=== PATIENT | male | born 1960 | race Caucasian/White ===

== ENCOUNTER 2017-07-29 15:30 | Inpatient (IN) ==
[2017-07-29] MEDS ORDERED: Naloxone 0.4 MG/ML INJ IVP PRN (20:19)
--- NOTE | 2017-07-29 20:35 | Internal Med History&Physical ---
Date of Encounter: 07/29/17 Time of Encounter: 19:40 Internal Medicine - H&P: HPI Chief complaint: melena; SOB; lightheaded Admitted From: Hospital to Hospital Transfer Plans for Post Hospital Care: Home History of present illness: Mr. Boyer is a 57 year old male who presents in transfer from [facility] ER. He presented there with melena, maroon-colored stools, and shortness breath with lightheadedness. He was found to be anemic with a hemoglobin of 7.6. Because of his symptoms and GI bleed, he was transferred to [facility]. Upon my assessment of the patient, he appears pale and weak. His is present and confirms the above history. Patient started having melena followed by wound-colored stools on occasion over the last week. Most of his bowel movements have been melena, however. Since symptoms started, he has become short of breath with exertion, lightheaded, and dizzy with exertion. He denies any chest pain or syncope. He denies any hematemesis, nausea, or vomiting. He denies any abdominal pain. He and his both confirm that he has been using [id number]-[id number] Aleve for years to treat his chronic back pain. He denies any alcohol use or abuse. Prior to last week, he was feeling fine and had no symptoms as noted above. He has never had EGD or colonoscopy. History is negative for any kind of peptic ulcer disease and/or colon disease. Presently, his blood pressure is 97/63 and his heart rate is in the upper 90s. He is pale and weak but otherwise in no significant distress. His reports that his blood pressure home normally runs 140-150 systolic. Given that he is hypotensive and symptomatic, I am moving him to the intensive care unit for fluid and blood product resuscitation and stabilization. I contacted Dr. Garnica and requested consultation from him for planned EGD in the morning. Should he become unstable, I will contact him to proceed with urgent EGD this evening. Dr. Garnica agreed with my plan of care. Past Med Surg Social Fam HX - Past Medical History Attestation: Yes The following information was validated with the patient. Source: patient, old records reviewed, obtained from family Medical history: no medical history Psychiatric history: no psych history - Past Surgical History Surgical History: no surgical history - Social History Smoking Status: Current every day smoker Packs per day: 1 Smokeless Tobacco Status: No Alcohol use: none Drug use: none Occupational status: employed Current living situation: Home, With Family Activity Level: Independent ambulation Recent Out of Country Travel Within the Last 8 Weeks: No - Family History Father Living Status: Still Living Hx Family Cancer: Yes Hx Family GI Disorders: No Mother Living Status: Still Living Hx Family GI Disorders: No Internal Medicine - H&P: Meds Aspirin [Adult Aspirin Regimen] 81 mg PO DAILY 07/29/17 [History] 3 Allergy/AdvReac Type Severity Reaction Status Date / Time No Known Allergies Allergy Verified 07/24/17 11:52 - Constitutional Constitutional: fatigue, weakness, no chills, no fever(s), no night sweats - EENT Eyes: no blurry vision, no change in vision Ears: no ear pain, no tinnitus Nose, mouth and throat: no nasal congestion, no nasal discharge, no sinus pressure, no sore throat - Cardiovascular Cardiovascular ROS IM: dyspnea on exertion, lightheadedness, no chest pain, no dyspnea, no palpitations, no paroxysmal nocturnal dyspnea, no syncope - Respiratory Respiratory: no cough, no hemoptysis, no wheezing, no chest congestion, no excessive phlegm production, no change in phlegm color - Gastrointestinal Gastrointestinal: heartburn, melena, no abdominal pain, no coffee ground emesis , no hematemesis, no hematochezia, no nausea, no vomiting - Genitourinary Genitourinary ROS male: no dysuria, no flank pain, no hematuria - Musculoskeletal Musculoskeletal ROS IM: arthralgias, back pain - Integumentary Integumentary IM: no rash, no jaundice - Neurological Neurological ROS: dizziness, weakness, no focal weakness, no frequent falls, no headache(s) - Psychiatric Psychiatric: no anxiety, no depression - Endocrine Endocrine IM: no polydipsia, no polyuria - Allergic/Immunologic Allergic/Immunologic: no wheezing, no GI upset with certain foods - Constitutional Vitals: BP Pulse Ox 97/63 98 07/29/17 20:09 07/29/17 20:09 General appearance: Present: cooperative, A&O X 3, pleasant, no acute distress, answers questions appropriately Exam: pale and weak; resting comfortably in bed - Head Head exam: Present: normal inspection - Eye Eye exam: Present: EOMI. Absent: PERRL, scleral icterus Pupils: Present: normal accommodation Additional comments: right eye blind/lazy eye -- from - ENT ENT exam: Present: mucous membranes dry, normal exam, normal oropharynx Additional comments: pale mucosa - Neck Neck exam general surgery: Present: full ROM, supple. Absent: tenderness, nuchal rigidity, thyromegaly - Respiratory Respiratory exam: Present: CTAB. Absent: rales, rhonchi, wheezes - Cardiovascular Cardiovascular exam: Present: RRR, +S1, +S2. Absent: diastolic murmur, systolic murmur Additional comments: HR 90-96 on auscultation - GI/Abdominal GI/Abdominal exam: Present: normal bowel sounds, soft. Absent: guarding, hepatomegaly, mass, rebound, splenomegaly, tenderness - Extremities Exam Extremities exam: Present: full ROM, warm, radial pulses palpable and symmetrical. Absent: calf tenderness, joint swelling, normal capillary refill ( ~3-4 seconds), pedal edema, tenderness - Back Exam Back exam: Absent: CVA tenderness (L), CVA tenderness (R) - Neurological Exam Neurological exam: Present: alert, CN II-XII intact, oriented X3, no focal deficits, strengths equal and symetr throughout - Psychiatric Psychiatric exam: Present: normal affect, normal mood - Skin Skin exam: Present: dry, warm. Absent: rash Internal Med - H&P Results - Labs Labs: I reviewed labs from [place] and include the following: WBC 14.4 Hemoglobin 7.6 (baseline 17.3) Hematocrit 22.5 Platelets 349 Segmented neutrophils 61% Lymphocytes 26% Monocytes 6% PT 11.6 INR 1.1 PTT 28.8 Sodium 138 Potassium 3.8 Chloride 106 Carbon dioxide 25 BUN 11 Creatinine 0.85 - Assessment and plan (1) GI bleed Current Visit: Yes Status: Acute Assessment and plan: 1. Patient with suspected UGI bleed given symptoms and chronic NSAID use. 2. Due to hemdoynamic instability, will move to ICU, place a second IV, transfuse 2 units PRBC, monitor H/H frequently. 3. I called and spoke with Dr. Garnica requesting consultation for EGD. Plan for EGD in the morning, sooner if necessary. 4. Protonix drip. 5. Culture blood and start IV antibiotics to cover GI josep. Qualifiers: GI bleed type/associated pathology: melena Qualified Code(s): K92.1 - Melena (2) Symptomatic anemia Current Visit: Yes Status: Acute Assessment and plan: 1. Will transfuse PRBC's and monitor H/H closely. 2. Source of bleed likely UGI. (3) DVT prophylaxis Current Visit: Yes Status: Acute Assessment and plan: 1. EPCD's.
[2017-07-29] MEDS: Pantoprazole 40 MG in 0.9 % Sodium Chloride Mini Bag 100 ML IVC SCH (21:34)
[2017-07-29] MEDS: 0.9 % Sodium Chloride w KCl 20 MEQ/1,000 ML MLS IVC SCH (21:34)
[2017-07-29] MEDS ORDERED: 0.9 % Sodium Chloride 250 ML ONE (22:40)
[2017-07-29] MEDS: Piperacillin/Tazobactam 3.375 GM in 0.9 % Sodium Chloride Mini Bag 100 ML IVPB SCH (23:09)
[2017-07-29] MEDS: MetroNIDAZOLE 500 MG/100 ML 500 MG/100 ML BAG IVPB SCH (23:10)
[2017-07-30] MEDS: Pantoprazole 40 MG in 0.9 % Sodium Chloride Mini Bag 100 ML IVC SCH ×5 (02:13→19:03)
[2017-07-30 03:09] LABS: BUN/Creatinine Ratio 12 (6-26); Blood Urea Nitrogen 9 mg/dL (6-20); Calcium 8.2 mg/dL (8.6-10.3); Carbon Dioxide 22 mEq/L (23-29); Chloride 112 mEq/L (98-107); Glucose 92 mg/dL (70-105); Osmolality,Calculated 288 (280-300); Sodium 140 mEq/L (136-145); eGFR For African Americans > 60 (> 60); eGFR For Non-African Americans > 60 (> 60)
[2017-07-30 03:14] LABS: Basophils # 0.1 K/mcL (0.0-0.2); Basophils % 0.4 %; Eosinophils # 0.5 K/mcL (0.0-0.6); Eosinophils % 3.3 %; Hematocrit 22.4 % (37.5-50.1); Hemoglobin 7.7 g/dL (12.9-16.9); Immature Granulocytes % 1.2 % (0-4); Lymphocytes # 3.1 K/mcL (0.6-4.6); Lymphocytes % 23.1 %; Mean Corpuscular HGB Conc 34.4 g/dL (31.6-35.5); Mean Corpuscular Hemoglobin 32.5 pg (28.0-33.3); Mean Corpuscular Volume 94.5 fL (83.0-100.0); Mean Platelet Volume 9.3 fL (9.4-12.4); Monocytes # 0.9 K/mcL (0.0-1.3); Monocytes % 6.9 %; Neutrophils # 8.9 K/mcL (1.6-8.9); Nucleated Red Blood Cells 0.1 /100 WBC (0); Platelet Count 306 K/mcL (140-400); Red Blood Count 2.37 M/mcL (4.19-5.50); Red Cell Distribution Width 15.9 % (11.5-14.5); Segmented Neutrophils % 65.1 %
[2017-07-30 03:15] LABS: Hemoglobin 7.7 g/dL (12.9-16.9)
[2017-07-30 03:19] LABS: INR 1.1; Prothrombin Time 11.8 Seconds (9.4-12.1)
[2017-07-30] MEDS: 0.9 % Sodium Chloride w KCl 20 MEQ/1,000 ML MLS IVC SCH ×3 (06:45→19:04)
--- NOTE | 2017-07-30 07:16 | Electrocardiograph Report ---
[place] [id number] Test Date: 2017-07-29 Pat Name: Boby Boyer Department: 109 [facility]: [facility] Gender: M [employer]: SUKUMAR : 1960 Requested By: Francisco Javier Higgins Order Number: [id number] Reading MD: Amrit Brennan Measurements Intervals [place] Rate: 81 P: 52 MS: 162 QRS: 54 QRSD: 108 T: 13 QT: 376 QTc: 414 Interpretive Statements SINUS RHYTHM Electronically Signed On 07-30-2017 7:14:31 EDT by Amrit Brennan
--- NOTE | 2017-07-30 08:01 | General Surgery Consult Note ---
<Aguilar Smith - Last Filed: 07/30/17 09:07> Date of Encounter: 07/30/17 Time of Encounter: 07:15 Assessment and Plan (2) Hematochezia Current Visit: Yes Status: Acute Brisk upper G.I. bleed versus lower G.I. bleed. Acute painless gross hematochezia with symptomatic anemia; started 07/24/17. Chronic NSAID use. No h/o GERD, PUD, or colonoscopies. Has been transfused 2 units of pRBCs. Vital signs stable. - Miralax/Gatorade bowel prep for EGD/Colonoscopy on 07/31/17 - clear liquid diet for now - NPO at midnight - monitor and correct anemia as needed - cont IV PPI at current rate - further recommendations/plans to follow (3) Symptomatic anemia Current Visit: Yes Status: Acute VSS, closely monitoring, has been transfused 2 units. (4) DVT prophylaxis Current Visit: Yes Status: Acute Mechanical History of Present Illness Consult date: 07/30/17 (Dr. Danyell Higgins) Reason for consult: other (GI bleed) History of present illness: Mr. Boyer is a 57-year-old male with no elucidated past medical history who is admitted for acute G.I. bleed with symptomatic anemia. Patient states this began on 07/24/2017 with grossly bloody bowel movements. Patient states at that time, blood was bright red copious with bowel movement saturating the bowl. No preceding blood streaks solely on toilet paper. Denies knowledge of hemorrhoids ever bleeding. Denies other history of similar bleeding. Patient denies any associated fevers, chills, sweats, nausea, vomiting, epigastric burning, other abdominal pain. Does have history of chronic back pain for which he takes a leave on a regular basis. Patient also takes baby aspirin of his own accord. Was seen an urgent care on 07/24/17 and bleeding was attributed to hemorrhoids. Bleeding continued similarly through and Saturday. As of Saturday, patient began to develop lightheadedness and fatigue stating he could also feel his heart bounding. Patient saw his company physician at that time who checked his pulse rate and blood pressure; patient states blood pressure was a little elevated but the pulse rate was normal. Patient ultimately went to [facility] emergency department on 07/29/2017 due to continued bloody bowel movements and worsening fatigue/lightheadedness. There, he was found to be anemic with a hemoglobin of 7.6 g/dL. Transferred to [facility] at that time. Initial blood pressure 97/63 and heart rate and high 90s; patient usually has a blood pressure with systolic above 130. Admitted by hospitalist to ICU and transfused with 2 units pRBCs; Hgb recheck at [facility] 7.7g/dL. Again, no known past medical or surgical history. Has never had an EGD or colonoscopy. Denies any history of GERD/PUD. Not on any other medications. Denies use of alcohol or illicit substances. Has 35 pack year smoking history and is a current smoker. No known drug allergies. Verified full code status. Past Med Surg Social Fam HX - Past Medical History Attestation: Yes The following information was validated with the patient. Source: patient Medical history: no medical history Psychiatric history: no psych history - Past Surgical History Surgical History: no surgical history - Social History Smoking Status: Current every day smoker Packs per day: 1 Smokeless Tobacco Status: No Alcohol use: none Drug use: none - Family History Father Living Status: Still Living Hx Family Cancer: Yes Hx Family GI Disorders: No Mother Living Status: Still Living Hx Family GI Disorders: No Medications and Allergies Aspirin [Adult Aspirin Regimen] 81 mg PO DAILY 07/29/17 [History] Cyanocobalamin (Vitamin B-12) [Vitamin B12] 1,000 mcg PO DAILY 07/30/17 [History ] Multivitamin [One Daily Multivitamin] 1 tab PO DAILY 07/30/17 [History] 3 Allergy/AdvReac Type Severity Reaction Status Date / Time No Known Allergies Allergy Verified 07/30/17 08:47 Review of Systems All systems PM: The remainder of the systems were reviewed and are negative - Constitutional as per [facility] General Surgery Exam Initial Vital Signs BP Pulse Ox 97/63 98 07/29/17 20:09 07/29/17 20:09 VITAL SIGNS: Reviewed. See [facility] GENERAL: alert, comfortably supine, no acute distress, answers questions appropriately HEENT: normocephalic, pupils equal, right eye laterally deviated, mucosa pink/ moist CV: RRR, no murmurs or gallops, no JVD RESPIRATORY: CTAB without wheezes, rales, or rhonchi ABD: rotund, grossly normal, normoactive, soft, non-tender, no rebound/guarding/ rigidity, no peritoneal signs EXTREMITY: grossly normal motor function, peripheral pulses 2+ b/l NEUROLOGIC EXAM: AOx3, obeys commands, no speech deficits. PSYCHIATRIC: normal mood and affect SKIN: no gross lesions, rashes, or skin changes Exam Initial Vital Signs BP Pulse Ox 97/63 98 07/29/17 20:09 07/29/17 20:09 Results - Labs 07/30/17 02:40 07/30/17 02:40 Abnormal lab results WBC 13.6 K/mcL (4.3-11.1) H 07/30/17 02:40 RBC 2.37 M/mcL (4.19-5.50) L 07/30/17 02:40 Hgb 7.7 g/dL (12.9-16.9) L 07/30/17 02:40 Hct 22.4 % (37.5-50.1) L 07/30/17 02:40 RDW 15.9 % (11.5-14.5) H 07/30/17 02:40 MPV 9.3 fL (9.4-12.4) L 07/30/17 02:40 Nucleated RBCs/100 WBC 0.1 /100 WBC (0) H 07/30/17 02:40 Chloride 112 mEq/L (98-107) H 07/30/17 02:40 Carbon Dioxide 22 mEq/L (23-29) L 07/30/17 02:40 POC Glucose 105 mg/dL (70-99) H 07/29/17 21:47 Calcium 8.2 mg/dL (8.6-10.3) L 07/30/17 02:40 Diabetes panel 07/30/17 Range/Units 02:40 Sodium 140 (136-145) mEq/L Potassium 4.0 (3.5-5.1) mEq/L Chloride 112 H (98-107) mEq/L Carbon Dioxide 22 L (23-29) mEq/L BUN 9 (6-20) mg/dL Creatinine 0.73 (0.70-1.30) mg/dL Glucose 92 (70-105) mg/dL Calcium 8.2 L (8.6-10.3) mg/dL Calcium panel 07/30/17 Range/Units 02:40 Calcium 8.2 L (8.6-10.3) mg/dL Pituitary panel 07/30/17 Range/Units 02:40 Sodium 140 (136-145) mEq/L Potassium 4.0 (3.5-5.1) mEq/L Chloride 112 H (98-107) mEq/L Carbon Dioxide 22 L (23-29) mEq/L BUN 9 (6-20) mg/dL Creatinine 0.73 (0.70-1.30) mg/dL Glucose 92 (70-105) mg/dL Calcium 8.2 L (8.6-10.3) mg/dL Adrenal panel 07/30/17 Range/Units 02:40 Sodium 140 (136-145) mEq/L Potassium 4.0 (3.5-5.1) mEq/L Chloride 112 H (98-107) mEq/L Carbon Dioxide 22 L (23-29) mEq/L BUN 9 (6-20) mg/dL Creatinine 0.73 (0.70-1.30) mg/dL Glucose 92 (70-105) mg/dL Calcium 8.2 L (8.6-10.3) mg/dL All other labs normal. Consult Discharge Plan - Plan Referrals: NONE,PCP [Primary Care Provider] - <Clive Garnica - Last Filed: 08/01/17 08:48> Date of Encounter: 07/30/17 Review of Systems All systems PM: The remainder of the systems were reviewed and are negative General Surgery Exam Initial Vital Signs BP Pulse Ox 97/63 98 07/29/17 20:09 07/29/17 20:09 Exam Initial Vital Signs BP Pulse Ox 97/63 98 07/29/17 20:09 07/29/17 20:09 Results - Labs 08/01/17 03:59 08/01/17 03:59 Abnormal lab results WBC 12.0 K/mcL (4.3-11.1) H 08/01/17 03:59 RBC 2.96 M/mcL (4.19-5.50) L 08/01/17 03:59 Hgb 8.9 g/dL (12.9-16.9) L 08/01/17 03:59 Hct 27.3 % (37.5-50.1) L 08/01/17 03:59 RDW 17.2 % (11.5-14.5) H 08/01/17 03:59 Eosinophils # 0.7 K/mcL (0.0-0.6) H 08/01/17 03:59 Nucleated RBCs/100 WBC 0.1 /100 WBC (0) H 07/30/17 02:40 Chloride 110 mEq/L (98-107) H 08/01/17 03:59 Carbon Dioxide 22 mEq/L (23-29) L 08/01/17 03:59 POC Glucose 105 mg/dL (70-99) H 07/29/17 21:47 Calcium 8.3 mg/dL (8.6-10.3) L 08/01/17 03:59 Diabetes panel 08/01/17 Range/Units 03:59 Sodium 138 (136-145) mEq/L Potassium 4.4 (3.5-5.1) mEq/L Chloride 110 H (98-107) mEq/L Carbon Dioxide 22 L (23-29) mEq/L BUN 7 (6-20) mg/dL Creatinine 0.78 (0.70-1.30) mg/dL Glucose 94 (70-105) mg/dL Calcium 8.3 L (8.6-10.3) mg/dL Calcium panel 08/01/17 Range/Units 03:59 Calcium 8.3 L (8.6-10.3) mg/dL Pituitary panel 08/01/17 Range/Units 03:59 Sodium 138 (136-145) mEq/L Potassium 4.4 (3.5-5.1) mEq/L Chloride 110 H (98-107) mEq/L Carbon Dioxide 22 L (23-29) mEq/L BUN 7 (6-20) mg/dL Creatinine 0.78 (0.70-1.30) mg/dL Glucose 94 (70-105) mg/dL Calcium 8.3 L (8.6-10.3) mg/dL Adrenal panel 08/01/17 Range/Units 03:59 Sodium 138 (136-145) mEq/L Potassium 4.4 (3.5-5.1) mEq/L Chloride 110 H (98-107) mEq/L Carbon Dioxide 22 L (23-29) mEq/L BUN 7 (6-20) mg/dL Creatinine 0.78 (0.70-1.30) mg/dL Glucose 94 (70-105) mg/dL Calcium 8.3 L (8.6-10.3) mg/dL All other labs normal. - Attending Attestation I examined this patient and my medical decision-making was reviewed with the Resident Physician. I agree with the documented findings, disposition and treatment plan as described except to the extent set forth below. The patient is seen and evaluated. He has undergone resuscitation for gastrointestinal bleeding. We will plan bowel prep and EGD and colonoscopy tomorrow Clive Garnica MD FACS
[2017-07-30] MEDS: Piperacillin/Tazobactam 3.375 GM in 0.9 % Sodium Chloride Mini Bag 100 ML IVPB SCH ×3 (08:28→23:21)
[2017-07-30] MEDS: MetroNIDAZOLE 500 MG/100 ML 500 MG/100 ML BAG IVPB SCH (08:28)
--- NOTE | 2017-07-30 09:03 | Internal Med Progress Note ---
Date of Encounter: 07/30/17 Time of Encounter: 09:00 - Assessment and plan (1) GI bleed Current Visit: Yes Status: Inactive Assessment and plan: 1. Patient with suspected UGI bleed given symptoms and chronic NSAID use. s/p 2 units PRBC. Monitor hemoglobin . Plan for EGD today. Surgery. Patient was started on zosyn and metronidazole. Will d/c metronidazole and continue to evaluate need for antibiotic coverage Qualifiers: GI bleed type/associated pathology: melena Qualified Code(s): K92.1 - Melena (2) Symptomatic anemia Current Visit: Yes Status: Acute Assessment and plan: 1. Will transfuse PRBC's and monitor H/H closely. 2. Source of bleed likely UGI. (3) DVT prophylaxis Current Visit: Yes Status: Acute Assessment and plan: 1. EPCD's. - Time Spent With Patient Total time spent is greater than 50% in coordination of care (as documented) at patient's floor/unit and/or counseling patient: - Subjective Interval history: Admitted overnight for acute GI bleed - Constitutional Vitals: Temp Pulse Resp BP Pulse Ox 98.8 F 60 16 109/55 96 07/30/17 07:45 07/30/17 06:00 07/30/17 06:00 07/30/17 06:00 07/30/17 06:00 General appearance: Present: cooperative, A&O X 3, pleasant, no acute distress, answers questions appropriately - Head Head exam: Present: atraumatic, normocephalic - Eye Eye exam: Present: PERRL, conjuntiva pink, sclera anicteric Pupils: Present: PERRL - Neck Neck exam general surgery: Present: supple, trachea midline. Absent: lymphadenopathy - Respiratory Respiratory exam: Present: CTAB. Absent: accessory muscle use, rales, rhonchi, wheezes - Cardiovascular Cardiovascular exam: Present: RRR, +S1, +S2. Absent: diastolic murmur, gallop, rubs, systolic murmur - GI/Abdominal GI/Abdominal exam: Present: normal bowel sounds, soft, no peritoneal signs. Absent: distended, tenderness - Extremities Exam Extremities exam: Present: warm, radial pulses palpable and symmetrical. Absent : calf tenderness, cyanotic, pedal edema - Neurological Exam Neurological exam: Present: CN II-XII intact, oriented X3, no focal deficits. Absent: pronater drift, facial droop, speech deficit - Skin Skin exam: Present: dry, intact Internal Medicine: Result - Labs CBC & Chem 7: 07/30/17 14:47 07/30/17 02:40 Labs: Short CBC 07/30/17 07/30/17 Range/Units 02:40 02:40 WBC 13.6 H (4.3-11.1) K/mcL Hgb 7.7 L 7.7 L (12.9-16.9) g/dL Hct 23.0 L 22.4 L (37.5-50.1) % Plt Count 306 (140-400) K/mcL Neutrophils # 8.9 (1.6-8.9) K/mcL BMP 07/30/17 02:40 Sodium 140 Potassium 4.0 Chloride 112 H Carbon Dioxide 22 L BUN 9 Creatinine 0.73 Glucose 92 Calcium 8.2 L - ABG Interpretation ABG results: PT/INR, D-dimer PT 11.8 Seconds (9.4-12.1) 07/30/17 02:40 Consult Discharge Plan - Plan Referrals: NONE,PCP [Primary Care Provider] -
[2017-07-30] MEDS ORDERED: Polyethylene Glycol 3350 255 GM POWDER PO ONE (09:05)
[2017-07-30 10:37] LABS: Hematocrit 25.8 % (37.5-50.1); Hemoglobin 8.7 g/dL (12.9-16.9)
[2017-07-30] MEDS ORDERED: Ondansetron 4 MG/2 ML VIAL IVP PRN ×2 (14:12→15:16)
[2017-07-30] MEDS ORDERED: Ondansetron 4 MG/2 ML VIAL ONE (14:13)
[2017-07-30 14:59] LABS: Hematocrit 27.8 % (37.5-50.1); Hemoglobin 9.5 g/dL (12.9-16.9)
[2017-07-30] MEDS ORDERED: Naloxone 0.4 MG/ML INJ IVP PRN (15:16)
[2017-07-30 21:26] LABS: Hematocrit 25.1 % (37.5-50.1); Hemoglobin 8.5 g/dL (12.9-16.9)
[2017-07-31] MEDS: Pantoprazole 40 MG in 0.9 % Sodium Chloride Mini Bag 100 ML IVC SCH ×4 (00:12→19:23)
[2017-07-31 02:41] LABS: Basophils # 0.1 K/mcL (0.0-0.2); Basophils % 0.4 %; Eosinophils # 0.8 K/mcL (0.0-0.6); Eosinophils % 6.1 %; Hemoglobin 8.3 g/dL (12.9-16.9); Lymphocytes % 22.3 %; Mean Corpuscular HGB Conc 33.2 g/dL (31.6-35.5); Mean Corpuscular Hemoglobin 30.7 pg (28.0-33.3); Mean Corpuscular Volume 92.6 fL (83.0-100.0); Mean Platelet Volume 9.5 fL (9.4-12.4); Monocytes # 0.9 K/mcL (0.0-1.3); Monocytes % 6.9 %; Neutrophils # 8.5 K/mcL (1.6-8.9); Platelet Count 289 K/mcL (140-400); Red Cell Distribution Width 17.8 % (11.5-14.5); Segmented Neutrophils % 63.3 %
[2017-07-31 02:54] LABS: BUN/Creatinine Ratio 9 (6-26); Blood Urea Nitrogen 7 mg/dL (6-20); Calcium 8.1 mg/dL (8.6-10.3); Carbon Dioxide 22 mEq/L (23-29); Chloride 117 mEq/L (98-107); Glucose 95 mg/dL (70-105); Osmolality,Calculated 296 (280-300); Potassium 4.5 mEq/L (3.5-5.1); Sodium 144 mEq/L (136-145); eGFR For African Americans > 60 (> 60); eGFR For Non-African Americans > 60 (> 60)
[2017-07-31] MEDS: 0.9 % Sodium Chloride w KCl 20 MEQ/1,000 ML MLS IVC SCH ×2 (05:20→15:18)
--- NOTE | 2017-07-31 07:02 | General Surgery Progress Note ---
Date of Encounter: 07/31/17 Time of Encounter: 06:59 - Assessment and Plan (1) Hematochezia Current Visit: Yes Status: Acute Brisk upper G.I. bleed versus lower G.I. bleed. Acute painless gross hematochezia with symptomatic anemia; started 07/24/17. Chronic NSAID use. No h/o GERD, PUD, or colonoscopies. Has been transfused 2 units of pRBCs. Most recent hemoglobin 8.3g/dL. Blood pressure was soft, borderline hypotensive , but otherwise vitals stable. Nor current blood in stools since yesterday. No other subjective changes in condition. - Plan is EGD/colonoscopy today - monitor and correct anemia as needed - cont IV PPI - further recommendations/plans to follow (2) Symptomatic anemia Current Visit: Yes Status: Acute As above (3) DVT prophylaxis Current Visit: Yes Status: Acute Mechanical Subjective Narrative: Subjectively unchanged. No pain. Has been NPO since midnight. Several bowel movements due to bowel prep yesterday without any blood. Plan is for EGD/ colonoscopy today. Objective Vital Signs - Last 8 Hours Temp Pulse Resp BP Pulse Ox 07/31/17 04:37 98.0 F 67 16 100/57 94 07/30/17 23:58 98.1 F 78 16 91/53 90 Intake and Output 07/30/17 07/30/17 07/31/17 15:59 23:59 07:59 Intake Total 100 / 100 340 / 340 1200 / 1200 Output Total 125 / 125 Balance -25 / -25 340 / 340 1200 / 1200 Intake: IV Fluids 100 / 100 100 / 100 1200 / 1200 KCl 20 mEq in 0.9% Sodium 1000 / 1000 Chloride 20 meq In 1,000 ml @ 100 mls/hr IVC .Q10H [facility] Rx#: [id number] Protonix 40 MG In 0.9 % Sodium 100 / 100 200 / 200 Chloride (Mini-Bag +) 100 ML @ 20 mls/hr IVC .Q5H [facility] Rx#: [id number] Zosyn 3.375 GM In 0.9 % Sodium 100 / 100 Chloride (Mini-Bag +) 100 ML @ 25 mls/hr IVPB Q8HR [facility] Rx#: [id number] Oral 0 / 0 240 / 240 0 / 0 Output: Urine 125 / 125 Other: Meal Dinner Percent of Meal Consumed 0% # Voids 1 # Bowel Movements 1 Weight 101.2 kg Patient Weight 07/31/17 23:59 Weight 101.2 kg VITAL SIGNS: [facility] GENERAL: alert, comfortably supine, no acute distress, answers questions appropriately HEENT: normocephalic, pupils equal, right eye laterally deviated, mucosa pink/ moist CV: RRR, no murmurs or gallops, no JVD RESPIRATORY: CTAB without wheezes, rales, or rhonchi ABD: rotund, grossly normal, normoactive, soft, non-tender, no rebound/guarding/ rigidity, no peritoneal signs EXTREMITY: grossly normal motor function, peripheral pulses 2+ b/l NEUROLOGIC EXAM: AOx3, obeys commands, no speech deficits. PSYCHIATRIC: normal mood and affect SKIN: no gross lesions, rashes, or skin changes - Labs 07/31/17 02:25 07/31/17 02:25 Diabetes panel 07/31/17 Range/Units 02:25 Sodium 144 (136-145) mEq/L Potassium 4.5 (3.5-5.1) mEq/L Chloride 117 H (98-107) mEq/L Carbon Dioxide 22 L (23-29) mEq/L BUN 7 (6-20) mg/dL Creatinine 0.78 (0.70-1.30) mg/dL Glucose 95 (70-105) mg/dL Calcium 8.1 L (8.6-10.3) mg/dL Calcium panel 07/31/17 Range/Units 02:25 Calcium 8.1 L (8.6-10.3) mg/dL Pituitary panel 07/31/17 Range/Units 02:25 Sodium 144 (136-145) mEq/L Potassium 4.5 (3.5-5.1) mEq/L Chloride 117 H (98-107) mEq/L Carbon Dioxide 22 L (23-29) mEq/L BUN 7 (6-20) mg/dL Creatinine 0.78 (0.70-1.30) mg/dL Glucose 95 (70-105) mg/dL Calcium 8.1 L (8.6-10.3) mg/dL Adrenal panel 07/31/17 Range/Units 02:25 Sodium 144 (136-145) mEq/L Potassium 4.5 (3.5-5.1) mEq/L Chloride 117 H (98-107) mEq/L Carbon Dioxide 22 L (23-29) mEq/L BUN 7 (6-20) mg/dL Creatinine 0.78 (0.70-1.30) mg/dL Glucose 95 (70-105) mg/dL Calcium 8.1 L (8.6-10.3) mg/dL - VTE Documentation of Mechanical Device: Intermittent pneumatic compression device Consult Discharge Plan - Plan Referrals: NONE,PCP [Primary Care Provider] -
[2017-07-31] MEDS: Piperacillin/Tazobactam 3.375 GM in 0.9 % Sodium Chloride Mini Bag 100 ML IVPB SCH ×2 (08:59→17:30)
[2017-07-31 09:13] LABS: Hematocrit 25.4 % (37.5-50.1); Hemoglobin 8.8 g/dL (12.9-16.9)
--- NOTE | 2017-07-31 09:29 | Internal Med Progress Note ---
Date of Encounter: 07/31/17 Time of Encounter: 09:30 - Assessment and plan (1) GI bleed Current Visit: Yes Status: Inactive Assessment and plan: Patient with suspected UGI bleed given symptoms and chronic NSAID use. s/p 2 units PRBC. Monitor hemoglobin . Continue zosyn. Bood cultures so far negative. Plan for EGD/colonoscopy. Surgery following Qualifiers: GI bleed type/associated pathology: melena Qualified Code(s): K92.1 - Melena (2) Symptomatic anemia Current Visit: Yes Status: Acute Assessment and plan: s/p 2 units PRBC. Hemoglobin stable. (3) DVT prophylaxis Current Visit: Yes Status: Acute Assessment and plan: 1. EPCD's. - Time Spent With Patient Total time spent is greater than 50% in coordination of care (as documented) at patient's floor/unit and/or counseling patient: - Subjective Interval history: No acute events overnight - Constitutional Vitals: Temp Pulse Resp BP Pulse Ox 98.2 F 79 16 110/65 93 07/31/17 07:11 07/31/17 07:11 07/31/17 07:11 07/31/17 07:11 07/31/17 07:11 General appearance: Present: cooperative, A&O X 3, pleasant, no acute distress, answers questions appropriately - Head Head exam: Present: atraumatic, normocephalic - Eye Eye exam: Present: PERRL, conjuntiva pink, sclera anicteric Pupils: Present: PERRL - Neck Neck exam general surgery: Present: supple, trachea midline. Absent: lymphadenopathy - Respiratory Respiratory exam: Present: CTAB. Absent: accessory muscle use, rales, rhonchi, wheezes - Cardiovascular Cardiovascular exam: Present: RRR, +S1, +S2. Absent: diastolic murmur, gallop, rubs, systolic murmur - GI/Abdominal GI/Abdominal exam: Present: normal bowel sounds, soft, no peritoneal signs. Absent: distended, tenderness - Extremities Exam Extremities exam: Present: warm, radial pulses palpable and symmetrical. Absent : calf tenderness, cyanotic, pedal edema - Neurological Exam Neurological exam: Present: CN II-XII intact, oriented X3, no focal deficits. Absent: pronater drift, facial droop, speech deficit - Skin Skin exam: Present: dry, intact Internal Medicine: Result - Labs CBC & Chem 7: 07/31/17 08:25 07/31/17 02:25 Labs: Short CBC 07/30/17 07/30/17 07/30/17 Range/Units 10:20 14:47 20:30 WBC (4.3-11.1) K/mcL Hgb 8.7 L 9.5 L 8.5 L (12.9-16.9) g/dL Hct 25.8 L 27.8 L 25.1 L (37.5-50.1) % Plt Count (140-400) K/mcL Neutrophils # (1.6-8.9) K/mcL 07/31/17 07/31/17 Range/Units 02:25 08:25 WBC 13.5 H (4.3-11.1) K/mcL Hgb 8.3 L 8.8 L (12.9-16.9) g/dL Hct 25.0 L 25.4 L (37.5-50.1) % Plt Count 289 (140-400) K/mcL Neutrophils # 8.5 (1.6-8.9) K/mcL BMP 07/31/17 02:25 Sodium 144 Potassium 4.5 Chloride 117 H Carbon Dioxide 22 L BUN 7 Creatinine 0.78 Glucose 95 Calcium 8.1 L - ABG Interpretation ABG results: PT/INR, D-dimer PT 11.8 Seconds (9.4-12.1) 07/30/17 02:40 - Impressions Impressions Chest X-Ray 07/30/17 09:00 IMPRESSION: Borderline cardiac enlargement. No acute pulmonary finding. D/ / Boby Delacruz MD / Boby Delacruz MD Interpreting Provider: Boby Delacruz MD - VTE Documentation of Mechanical Device: Intermittent pneumatic compression device Consult Discharge Plan - Plan Referrals: NONE,PCP [Primary Care Provider] -
[2017-07-31] MEDS ORDERED: Propofol 500 MG/50 ML INFUS..BTL ONE (14:32)
[2017-07-31 14:58] LABS: Hematocrit 25.9 % (37.5-50.1); Hemoglobin 8.9 g/dL (12.9-16.9)
--- NOTE | 2017-07-31 15:28 | Anesthesia Evaluation PreOp ---
Date of Encounter: 08/01/17 Time of Encounter: 15:40 - Past History Planned Operation: EGD/colonoscopy Cardiac History: Denies any Significant Hx Pulmonary History: Smoker [employer] History: Denies Any Significant HX Other Medical History: Denies Any Significant HX Anesthesia History: Past Anesthesia (denies PSH) Alcohol Use: none Drug use: none Medications and Allergies Aspirin [Adult Aspirin Regimen] 81 mg PO DAILY 07/29/17 [History] Cyanocobalamin (Vitamin B-12) [Vitamin B12] 1,000 mcg PO DAILY 07/30/17 [History ] Multivitamin [One Daily Multivitamin] 1 tab PO DAILY 07/30/17 [History] 3 Allergy/AdvReac Type Severity Reaction Status Date / Time No Known Allergies Allergy Verified 07/30/17 08:47 - Meds/Allergy Pre-op Review Medications Reviewed: Yes Allergies Reviewed: Yes Beta Blockers on Current Med List: No Anesthesia Results - Labs 08/01/17 03:59 08/01/17 03:59 Anesthesia Exam Selected Entries 07/31/17 11:37 Temperature 97.5 F L Pulse Rate 70 Respiratory Rate 15 Blood Pressure 106/64 O2 Sat by Pulse Oximetry 92 Oxygen Delivery Method Room Air Weight: 101kg NPO (# of Hours): 8 - HEENT Pupil (Motor): EOMI Mallampati: III Teeth: Missing Oral Opening: Greater than 3 - [employer] LOC: Oriented [employer] Motor: Normal RUE, Normal LUE, Normal RLE, Normal LLE, Normal Face [employer] Sensory: Normal: RUE, LUE, RLE, LLE, Face - Cardiac Rhythm: Regular Murmur: None - Pulmonary Breath Sounds: bilateral Clear Respiratory Effort: Symmetrical Anesthesia Assess/Plan ASA Score: 2 Modified Arvind Scale for Level of Consciousness: Cooperative, oriented, and tranquil Anesthetic Plan: MAC Monitoring Plan: Standard Monitors Recovery Plan: Other (agrees to MAC)
[2017-07-31] MEDS ORDERED: Simethicone 40 MG/0.6 ML MLS IR ONE (15:46)
[2017-07-31] MEDS ORDERED: Tetracaine/Benzocaine/Butamben 200MG/SPRAY (100SPY/BOT) MM ONE (15:46)
[2017-07-31] MEDS ORDERED: 0.9 % Sodium Chloride 1,000 ML IVC SCH (16:00)
[2017-07-31] MEDS: Pantoprazole 40 MG VIAL IVP SCH (20:04)
[2017-07-31 20:34] LABS: Hematocrit 26.9 % (37.5-50.1); Hemoglobin 9.2 g/dL (12.9-16.9)
[2017-08-01] MEDS: Piperacillin/Tazobactam 3.375 GM in 0.9 % Sodium Chloride Mini Bag 100 ML IVPB SCH ×2 (02:26→08:26)
[2017-08-01 04:12] LABS: Basophils # 0.1 K/mcL (0.0-0.2); Basophils % 0.4 %; Eosinophils # 0.7 K/mcL (0.0-0.6); Eosinophils % 5.6 %; Hematocrit 27.3 % (37.5-50.1); Hemoglobin 8.9 g/dL (12.9-16.9); Immature Granulocytes % 1.2 % (0-4); Lymphocytes # 2.6 K/mcL (0.6-4.6); Lymphocytes % 21.9 %; Mean Corpuscular HGB Conc 32.6 g/dL (31.6-35.5); Mean Corpuscular Hemoglobin 30.1 pg (28.0-33.3); Mean Corpuscular Volume 92.2 fL (83.0-100.0); Mean Platelet Volume 9.5 fL (9.4-12.4); Monocytes # 0.8 K/mcL (0.0-1.3); Monocytes % 6.7 %; Neutrophils # 7.7 K/mcL (1.6-8.9); Platelet Count 335 K/mcL (140-400); Red Blood Count 2.96 M/mcL (4.19-5.50); Red Cell Distribution Width 17.2 % (11.5-14.5); Segmented Neutrophils % 64.2 %
[2017-08-01 04:23] LABS: BUN/Creatinine Ratio 9 (6-26); Blood Urea Nitrogen 7 mg/dL (6-20); Calcium 8.3 mg/dL (8.6-10.3); Carbon Dioxide 22 mEq/L (23-29); Chloride 110 mEq/L (98-107); Glucose 94 mg/dL (70-105); Osmolality,Calculated 284 (280-300); Potassium 4.4 mEq/L (3.5-5.1); Sodium 138 mEq/L (136-145); eGFR For African Americans > 60 (> 60); eGFR For Non-African Americans > 60 (> 60)
--- NOTE | 2017-08-01 06:38 | General Surgery Progress Note ---
<Aguilar Simth - Last Filed: 08/01/17 08:49> Date of Encounter: 08/01/17 Time of Encounter: 06:38 - Assessment and Plan (1) Diverticulosis Status: Acute Diverticulum seen on colonoscopy done 07/31/2017; no active bleed on colonoscopy , but only suspicious prospect during endoscopies. Absence of other findings during colonoscopy that are suspected source for clinical picture. EGD also performed 07/31/17 without any significant findings that explain patient 's gross hematochezia and acute anemia. - okay for discharge - follow up if recurrent bleeding Qualifiers: Diverticulosis site: unspecified location Diverticulosis bleeding: diverticulosis with bleeding Qualified Code(s): K57.91 - Diverticulosis of intestine, part unspecified, without perforation or abscess with bleeding (2) Hematochezia Status: Acute No recurrent hematochezia. Hemoglobin stable. Vital signs stable. No recurrent symptoms of anemia. (3) Symptomatic anemia Status: Acute Asymptomatic; hemoglobin stable after transfusions on 1st night of admission. Subjective Narrative: No new complaints. Vital signs stable overnight. Hemoglobin stable. No recurrent gross blood in stools. Objective Vital Signs - Last 8 Hours Temp Pulse Resp BP Pulse Ox 08/01/17 03:55 98.6 F 84 18 111/66 91 08/01/17 00:08 98.1 F 73 18 102/67 93 Intake and Output 07/31/17 07/31/17 08/01/17 15:59 23:59 07:59 Intake Total 1200 / 1200 600 / 600 0 / 0 Balance 1200 / 1200 600 / 600 0 / 0 Intake: IV Fluids 1200 / 1200 400 / 400 0.9 % Sodium Chloride 1,000 ML 300 / 300 @ 50 mls/hr IVC .Q20H [facility] Rx#: [id number] KCl 20 mEq in 0.9% Sodium 1000 / 1000 Chloride 20 meq In 1,000 ml @ 100 mls/hr IVC .Q10H [facility] Rx#: [id number] Protonix 40 MG In 0.9 % Sodium 100 / 100 Chloride (Mini-Bag +) 100 ML @ 20 mls/hr IVC .Q5H [facility] Rx#: [id number] Zosyn 3.375 GM In 0.9 % Sodium 100 / 100 100 / 100 Chloride (Mini-Bag +) 100 ML @ 25 mls/hr IVPB Q8HR [facility] Rx#: [id number] Oral 0 / 0 200 / 200 0 / 0 Other: Meal NPO Dinner Percent of Meal Consumed 0% 100% # Bowel Movements 1 Weight 101.378 kg Patient Weight 08/01/17 23:59 Weight 101.378 kg VITAL SIGNS: Reviewed. See [facility] GENERAL: alert, comfortably seated at bedside, no acute distress, answers questions appropriately HEENT: normocephalic, pupils equal, right eye laterally deviated, mucosa pink/ moist CV: RRR, no murmurs or gallops, no JVD RESPIRATORY: CTAB without wheezes, rales, or rhonchi ABD: rotund, grossly normal, normoactive, soft, non-tender, no rebound/guarding/ rigidity, no peritoneal signs EXTREMITY: grossly normal motor function, peripheral pulses 2+ b/l NEUROLOGIC EXAM: AOx3, obeys commands, no speech deficits. PSYCHIATRIC: normal mood and affect SKIN: no gross lesions, rashes, or skin changes - Labs 08/01/17 03:59 08/01/17 03:59 Diabetes panel 08/01/17 Range/Units 03:59 Sodium 138 (136-145) mEq/L Potassium 4.4 (3.5-5.1) mEq/L Chloride 110 H (98-107) mEq/L Carbon Dioxide 22 L (23-29) mEq/L BUN 7 (6-20) mg/dL Creatinine 0.78 (0.70-1.30) mg/dL Glucose 94 (70-105) mg/dL Calcium 8.3 L (8.6-10.3) mg/dL Calcium panel 08/01/17 Range/Units 03:59 Calcium 8.3 L (8.6-10.3) mg/dL Pituitary panel 08/01/17 Range/Units 03:59 Sodium 138 (136-145) mEq/L Potassium 4.4 (3.5-5.1) mEq/L Chloride 110 H (98-107) mEq/L Carbon Dioxide 22 L (23-29) mEq/L BUN 7 (6-20) mg/dL Creatinine 0.78 (0.70-1.30) mg/dL Glucose 94 (70-105) mg/dL Calcium 8.3 L (8.6-10.3) mg/dL Adrenal panel 08/01/17 Range/Units 03:59 Sodium 138 (136-145) mEq/L Potassium 4.4 (3.5-5.1) mEq/L Chloride 110 H (98-107) mEq/L Carbon Dioxide 22 L (23-29) mEq/L BUN 7 (6-20) mg/dL Creatinine 0.78 (0.70-1.30) mg/dL Glucose 94 (70-105) mg/dL Calcium 8.3 L (8.6-10.3) mg/dL - VTE Documentation of Mechanical Device: Intermittent pneumatic compression device Consult Discharge Plan - Plan Referrals: Abdiel Pressley MD [Partnered Physician] - 08/02/17 1:00 pm (Please follow up as schedule...) NONE,PCP [Primary Care Provider] - Prescriptions: Pantoprazole Sodium [Protonix] 40 mg PO BID 30 Days #60 tablet.dr <Clive Garnica - Last Filed: 08/01/17 20:08> Date of Encounter: 08/01/17 Objective Intake and Output 08/01/17 08/01/17 08/01/17 07:59 15:59 23:59 Intake Total 100 / 100 300 / 300 Balance 100 / 100 300 / 300 Intake: IV Fluids 100 / 100 Zosyn 3.375 GM In 0.9 % Sodium 100 / 100 Chloride (Mini-Bag +) 100 ML @ 25 mls/hr IVPB Q8HR [facility] Rx#: [id number] Oral 0 / 0 300 / 300 Other: Meal Breakfast Percent of Meal Consumed 100% Weight 101.378 kg Patient Weight 08/01/17 23:59 Weight 101.378 kg - Labs 08/01/17 03:59 08/01/17 03:59 Diabetes panel 08/01/17 Range/Units 03:59 Sodium 138 (136-145) mEq/L Potassium 4.4 (3.5-5.1) mEq/L Chloride 110 H (98-107) mEq/L Carbon Dioxide 22 L (23-29) mEq/L BUN 7 (6-20) mg/dL Creatinine 0.78 (0.70-1.30) mg/dL Glucose 94 (70-105) mg/dL Calcium 8.3 L (8.6-10.3) mg/dL Calcium panel 08/01/17 Range/Units 03:59 Calcium 8.3 L (8.6-10.3) mg/dL Pituitary panel 08/01/17 Range/Units 03:59 Sodium 138 (136-145) mEq/L Potassium 4.4 (3.5-5.1) mEq/L Chloride 110 H (98-107) mEq/L Carbon Dioxide 22 L (23-29) mEq/L BUN 7 (6-20) mg/dL Creatinine 0.78 (0.70-1.30) mg/dL Glucose 94 (70-105) mg/dL Calcium 8.3 L (8.6-10.3) mg/dL Adrenal panel 08/01/17 Range/Units 03:59 Sodium 138 (136-145) mEq/L Potassium 4.4 (3.5-5.1) mEq/L Chloride 110 H (98-107) mEq/L Carbon Dioxide 22 L (23-29) mEq/L BUN 7 (6-20) mg/dL Creatinine 0.78 (0.70-1.30) mg/dL Glucose 94 (70-105) mg/dL Calcium 8.3 L (8.6-10.3) mg/dL - Attending Attestation I examined this patient and my medical decision-making was reviewed with the Resident Physician. I agree with the documented findings, disposition and treatment plan as described except to the extent set forth below. The patient is seen and evaluated with the resident on morning rounds. Sigmoid colon diverticulum, nonbleeding were the only significant findings. Ready for discharge no active bleeding Clive Garnica MD FACS
[2017-08-01] MEDS: Pantoprazole 40 MG VIAL IVP SCH (08:26)
--- NOTE | 2017-08-01 08:52 | Discharge Summary ---
- NOTES TO OUTPATIENT PROVIDER Notes to Outpatient Provider: follow up with surgery/ GI Orders not resulted at time of discharge: Pending orders 07/29/17 00:41 Culture,Blood [BC] Stat 07/29/17 23:36 Culture,Blood [BC] Stat 08/02/17 04:00 Basic Metabolic Panel AM 0400 CBC [Complete Blood Count] [HEME] AM 0400 08/03/17 04:00 Basic Metabolic Panel AM 0400 CBC [Complete Blood Count] [HEME] AM 0400 08/04/17 04:00 Basic Metabolic Panel AM 0400 CBC [Complete Blood Count] [HEME] AM 0400 08/05/17 04:00 Basic Metabolic Panel AM 0400 CBC [Complete Blood Count] [HEME] AM 0400 Date of Encounter: 08/01/17 Time of Encounter: 08:40 - Discharge Diagnosis (1) GI bleed Priority: Primary Status: Inactive Assessment and Plan: 57 year old male presented with melena, maroon colored stools and light headedness. Was found to be anemic at 7.6. He was suspected with UGI bleed given symptoms and chronic NSAID use. He was transfused 2 units of blood and started on a protonix drip. He was seen by surgery who did an EGD and colonscopy with no identification of any site of active bleeding. He was therefore cleared by surgery for discharge on protonix BID Qualifiers: GI bleed type/associated pathology: melena Qualified Code(s): K92.1 - Melena (2) Symptomatic anemia Priority: Secondary Status: Acute Assessment and Plan: s/p 2 units PRBC. Hemoglobin stable. (3) DVT prophylaxis Priority: Secondary Status: Acute Assessment and Plan: 1. EPCD's. Hospital course: Mr. Boyer is a 57 year old male - Time Spent with Patient Total time spent providing and/or coordinating discharge services: - Discharge Medications Prescriptions: Pantoprazole Sodium [Protonix] 40 mg PO BID 30 Days #60 tablet.dr Home Medications: Aspirin [Adult Aspirin Regimen] 81 mg PO DAILY 07/29/17 [History] Cyanocobalamin (Vitamin B-12) [Vitamin B12] 1,000 mcg PO DAILY 07/30/17 [History ] Multivitamin [One Daily Multivitamin] 1 tab PO DAILY 07/30/17 [History] Pantoprazole Sodium [Protonix] 40 mg PO BID 30 Days #60 tablet. 08/01/17 [Rx] Allergies/Adverse Reactions: 3 Allergy/AdvReac Type Severity Reaction Status Date / Time No Known Allergies Allergy Verified 07/30/17 08:47 Date of admission: 07/29/17 21:00 Primary care physician: PCP NONE Consults: 07/29/17 20:26 Consult to Surgery [CONS] Routine Consulting Provider: Clive Garnica Reason for Consult: GI bleed; need for endoscopy Time Notified: 20:27 Call Completed: Yes - Constitutional Vitals: Temp Pulse Resp BP Pulse Ox 98.3 F 73 16 124/68 95 08/01/17 07:48 08/01/17 07:48 08/01/17 07:48 08/01/17 07:48 08/01/17 07:48 General appearance: Present: cooperative, A&O X 3, pleasant, no acute distress, answers questions appropriately - Head Head exam: Present: atraumatic, normocephalic - Eye Eye exam: Present: PERRL, conjuntiva pink, sclera anicteric Pupils: Present: PERRL - Neck Neck exam general surgery: Present: supple, trachea midline. Absent: lymphadenopathy - Respiratory Respiratory exam: Present: CTAB. Absent: accessory muscle use, rales, rhonchi, wheezes - Cardiovascular Cardiovascular exam: Present: RRR, +S1, +S2. Absent: diastolic murmur, gallop, rubs, systolic murmur - GI/Abdominal GI/Abdominal exam: Present: normal bowel sounds, soft, no peritoneal signs. Absent: distended, tenderness - Extremities Exam Extremities exam: Present: warm, radial pulses palpable and symmetrical. Absent : calf tenderness, cyanotic, pedal edema - Neurological Exam Neurological exam: Present: CN II-XII intact, oriented X3, no focal deficits. Absent: pronater drift, facial droop, speech deficit - Skin Skin exam: Present: dry, intact - Patient Status Disposition: Home, Self-Care Condition: Good Overall status at discharge: patient is back to baseline - Discharge Instructions Follow Up With: Abdiel Pressley MD [Partnered Physician] - 08/02/17 1:00 pm (Please follow up as schedule...) NONE,PCP [Primary Care Provider] - - VTE Documentation of Mechanical Device: Intermittent pneumatic compression device
[2017-08-01 11:27] VITALS: BP 143/80
== END 2017-08-01 13:35 | disposition home or self-care (01) | DRG 379 ==
LOC: 3ANU → ICNU 21:54 → 2ANU 07-30 14:32
PROVIDERS: ADMIT Hospitalist; ATTEND Hospitalist